=== PATIENT | female | born 1970 | race Caucasian/White ===

== ENCOUNTER 2017-10-08 06:50 | Observation (INO) | payer BC, OTHER ==
--- NOTE | 2017-10-08 07:06 | ERNOTE ---
<John Alfaro - Last Filed: 10/08/17 11:14> Chest Pain/Cardiac HPI Chief Complaint: Chest Pain Time Seen by Provider: 10/08/17 07:02 Immunizations: IMMUNIZATION HX Immunizations Up to Date Yes History of Influenza Vaccine Yes Hx Pneumococcal Vaccination No Allergies/Adverse Reactions: Allergies Penicillins Adverse Reaction (Intermediate, Verified 10/08/17 13:36) Hives Home Medications: HOME MEDICATIONS ALPRAZolam [Xanax] 0.5 mg PO BID PRN 10/08/17 [Last Taken Unknown] DULoxetine HCL [Cymbalta] 40 mg PO HS 10/08/17 [Last Taken Unknown] Multivit-Min/Folic Acid/Vit K1 [Multi For Her 50 Plus Softgel] 1 each PO DAILY 10/08/17 [Last Taken Unknown] Zolpidem Tartrate [Ambien] 5 mg PO HS PRN 10/08/17 [Last Taken Unknown] Acetaminophen [Tylenol] 650 mg PO Q6H PRN tablet 10/09/17 [Last Taken Unknown] Famotidine [Pepcid] 20 mg PO BID #60 tablet 10/09/17 [Last Taken Unknown] Nitroglycerin [Nitrostat] 0.4 mg SL Q5MIN PRN #50 tab 10/09/17 [Last Taken Unknown] ED Progress - Date and Time Seen: Date and Time: patient improved, discussed results with patient recommend admission 11:[address] blue to be admitted to observation - Vital Signs Vital Signs: Vital Signs 10/08/17 10/08/17 10/08/17 06:59 07:46 07:50 Temperature 36.7 C Pulse Rate 68 88 83 Respiratory 16 12 9 L Rate Blood Pressure 160/83 157/84 139/76 O2 Sat by Pulse 98 99 99 Oximetry 10/08/17 10/08/17 10/08/17 07:57 08:07 08:31 Temperature 37.0 C Pulse Rate 90 87 72 Respiratory 8 L 12 14 Rate Blood Pressure 140/74 127/77 131/83 O2 Sat by Pulse 98 99 100 Oximetry 10/08/17 10/08/17 10/08/17 08:52 09:41 10:22 Temperature 36.6 C Pulse Rate 66 64 69 Respiratory 12 15 14 Rate Blood Pressure 133/77 125/83 164/86 O2 Sat by Pulse 100 100 100 Oximetry 10/08/17 10/08/17 10/08/17 10:30 10:47 11:09 Temperature Pulse Rate 83 72 67 Respiratory 14 12 13 Rate Blood Pressure 145/83 125/81 134/77 O2 Sat by Pulse 100 100 98 Oximetry Plan - Plan Plan: to admit to observation Departure Clinical Impression: Chest pain Qualifiers: Chest pain type: unspecified Qualified Code(s): R07.9 - Chest pain, unspecified - Departure Disposition: [facility] Condition: Fair <RubyJerry - Last Filed: 10/13/17 06:19> Chest Pain/Cardiac HPI Date of Service: 10/08/17 Source: patient Exam Limitations: no limitations Narrative: 47-year-old female who for the last month has been experiencing intermittent periods of nausea, fatigue, chest pain, diaphoresis. Chest pain seems to increase with exertion and resolves with rest. Chest pain is described as someone was sitting on her chest. He has not had any heart disease in the past. Status post cardiac stress test 2007 which was unremarkable. Platelets of fevers, chills, or vomiting. Mother had 2 MIs in their 60s. The patient did smoke for 20+ years ago, but then discontinued 10 years ago. Her reasons for coming to the emergency department today is that she became very anxious. She does have a history of anxiety and has medication for but typically doesn't take it. Date (Duration): 10/08/17 Time (Timing): 07:31 Timing: getting worse Severity/Quality: moderate Location: substernal Chest Pain Radiation: no radiation Activities at Onset: activity Review of Systems - Review of Systems Constitutional: Present: no symptoms reported EYE: Present: no symptoms reported ENT: Present: no symptoms reported Respiratory: Present: no symptoms reported Cardiology: Present: no symptoms reported Gastrointestinal/Abdominal: Present: no symptoms reported Genitourinary: Present: no symptoms reported Musculoskeletal: Present: no symptoms reported Skin: Present: no symptoms reported Neurological: Present: no symptoms reported Endocrine: Present: no symptoms reported Hematologic/Lymphatic: Present: no symptoms reported Psych: Present: no symptoms reported Physical Exam - Physical Exam General Appearance: Present: mild distress Head Exam: Present: normal inspection Eye Exam: Normal inspection: bilateral, PERRL: bilateral, EOMI: bilateral Ears, Nose, Throat: Present: normal ENT inspection Neck: Present: normal inspection, supple Respiratory: Present: no respiratory distress Cardiovascular/Chest: Present: regular rate, rhythm Gastrointestinal/Abdominal: Present: nontender, nondistended Back Exam: Present: normal inspection Extremity Exam: Present: normal inspection Neurological Exam: Present: alert, oriented Skin Exam: Present: normal color ED Progress - Results and Orders Patient's Lab Results:: I have reviewed the patient's lab results. - Vital Signs Patient's Vital Signs:: I have reviewed the patient's vital signs. - EKG EKG: NSR EKG read: Interp. by me EKG Comments: rate 64, normal aixs - Progress/Reassessment Progress:: Improved Progress Note-Subjective: 10/08/17 08:15 The third nitroglycerin tablet the chest pain was reduced from a 6 to a 3. She now notes that the pain is aggravated by deep breathing. A d-dimer has been ordered to rule out a pulmonary embolus. He is signed out to Dr. Alfaro for follow-up on the laboratory results and final disposition of patient. Her symptoms are suspicious for angina. It has been suggested that she be admitted for observation with planned cardiac stress test to follow tomorrow. - Transfer of Care Physician Sign Out: Jerry Ruby Receiving Physician: John Alfaro Pending Results: Labs, Physician/consult arrival Expected Disposition: Admit
[2017-10-08] MEDS ORDERED: ASPIRIN 81 MG TAB.CHEW PO ONE (07:25)
[2017-10-08 07:41] LABS: Hemoglobin 10.2 gm/dL (12.5-16.0); Mean Cell Volume 76.9 fl (78-100); Mean Corpuscular Hemoglobin 24.5 pg (27-31); Mean Corpuscular Hgb Conc 31.9 g/dl (32-36); Mean Platelet Volume 10.6 fl (6.0-9.5); Neutrophil # 5.1 K/mm3 (1.3-6.0); Neutrophil % 60.9 % (42-75.0); Platelet Count 433 K/mm3 (150-450); Red Blood Count 4.16 M/mm3 (4.2-5.4); Red Cell Distribution Width 18.3 % (11.5-14.0); White Blood Count 8.3 K/mm3 (4.0-10.5)
[2017-10-08] MEDS: NITROGLYCERIN 0.4 MG/TAB BTL SL PRN ×3 (07:45→08:05)
[2017-10-08] MEDS ORDERED: ASPIRIN 81 MG TAB.CHEW ONE (07:49)
[2017-10-08 07:58] LABS: ALT 19 U/L (19-67); AST 19 U/L (0-48); Albumin * 3.6 gm/dl (3.4-5.0); Alkaline Phosphatase * 64 U/L (50-170); Anion Gap 11.3 mmol/L (6.8-13.8); BUN/Creatinine Ratio 11.6 (9.0-21.6); Bilirubin, Total 0.7 mg/dL (0.0-1.1); Blood Urea Nitrogen 8 mg/dL (3-23); Ca. Corrected For Albumin 8.5 mg/dL (8.4-10.2); Calcium * 8.5 mg/dL (7.9-10.9); Carbon Dioxide 28.1 mmol/L (24-32.6); Chloride 102 mmol/L (97-106); Glucose * 98 mg/dL (70-110); Potassium 3.4 mmol/L (3.4-4.6); Sodium 138 mmol/L (132-142); Total Protein 7.4 gm/dL (6.2-8.2); Troponin I Less than 0.017 ng/ml (0.00-0.10)
[2017-10-08 09:51] LABS: Urine Bilirubin Negative (NEGATIVE); Urine Blood Negative /ul (NEGATIVE); Urine Ketone 5 mg/dL (NEGATIVE); Urine Nitrite Negative (NEGATIVE); Urine Protein Negative (NEGATIVE); Urine Urobilinogen Normal (NORMAL)
[2017-10-08 10:05] LABS: Urine Appearance Clear; Urine Bacteria 1+; Urine Color Yellow; Urine RBC None Seen /hpf (0-5); Urine WBC None Seen /hpf (0-5)
[2017-10-08] MEDS ORDERED: NITROGLYCERIN 0.4 MG/TAB BTL SL ONE ×2 (10:24→10:29)
[2017-10-08] MEDS ORDERED: KETOROLAC TROMETHAMINE 30 MG/ML VIAL IV ONE (10:43)
[2017-10-08] MEDS ORDERED: KETOROLAC TROMETHAMINE 30 MG/ML VIAL ONE (10:44)
[2017-10-08 12:45] LABS: Amylase * 37 U/L (25-115); Lipase 147 U/L (73-393)
--- NOTE | 2017-10-08 12:50 | HP ---
Chief Complaint - Chief Complaint Date of Service: 10/08/17 Time of Service: 12:35 Chief Complaint: CP that has acutely worsened. History of Present Illness: Pt. is 47 yo WF, pt. of Dr. Aldrich, who has PMH significant for arthritis, fibromyalgia, gastric bypass, anxiety, has been having left sided CP x 1 month that worsened acutely last night. She does state that the pain would worsen with activity, be assoc. with COCHRAN, nausea, but no vomiting or diaphoresis and was relieved with rest. Her EKG showed no acute changes and trop I was negative x 2, but her sx were relieved with nitroglycerin. She denies heartburn or reflux sx, changes in her bowels or cough. She states the sx are different from her anxiety of the past and hasn't had any issues with it for some time. She does have some pain in the LUQ and Sternal border, which are worsened with movement or deep breath, but these are different from her CP sx. Her Mom had AMI at age 50 and needed stents placed. She has not history of hyperlipidemia, HTN or smoking history and no complaints of LE edema or recent travel and her d-dimer was negative for DVT. Her BP's were elevated when she came to the ER but have come down since being here. She currently rates her pain as 3/10. She is being put in the hospital overnight to observe and possibly get a stress test in the am if possible. - Patient's Past Medical History Patient History - Medical: Anemia, Fibromyalgia Patient History - Cardiac/Respiratory: No pertinent hx Patient History - Cancer: No Hx of Cancer Patient History - Surgical Procedures: Gastric Bypass, T & A Patient History - Other: None LMP (females 10-50): Sep 22 - Family History Mother Family History - Cardiac/Respiratory: Coronary Heart Disease, Myocardial Infarction - age 50 with stent placement - Social History Living Situations: home Psych History: Hx of Depression Smoking Status: Never smoker Alcohol Use: occasionally Drug Use: none - Immunizations Immunizations Up to Date: Yes Hx Pneumococcal Vaccination: No History of Influenza Vaccine: Yes Review Of Systems (GEN) - Review of Systems Generalized/Overall Review: Present: Weakness. Absent: Chills, Fever, Malaise EENTM: Present: No Symptoms Reported Respiratory: Present: Shortness of Breath. Absent: Cough, Wheezing Cardiac: Present: Chest Pain. Absent: Palpitations, Syncope Abdominal: Present: Nausea, Abdominal Pain. Absent: Vomiting, Hematemesis, Constipation, Diarrhea, Melena Genitourinary: Absent: No Symptoms Reported Musculoskeletal: Present: No Symptoms Reported Neurological: Present: No Symptoms Reported Skin: Present: No Symptoms Reported Endocrine: Present: No Symptoms Reported Allergies/Adverse Reactions: Allergies Allergy/AdvReac Type Severity Reaction Status Date / Time Penicillins AdvReac Verified 10/08/17 07:07 Home Medications: HOME MEDICATIONS ALPRAZolam [Xanax] 0.5 mg PO BID PRN 10/08/17 [Last Taken Unknown] DULoxetine HCL [Cymbalta] 40 mg PO HS 10/08/17 [Last Taken Unknown] Multivit-Min/Folic Acid/Vit K1 [Multi For Her 50 Plus Softgel] 1 each PO DAILY 10/08/17 [Last Taken Unknown] Zolpidem Tartrate [Ambien] 5 mg PO HS 10/08/17 [Last Taken Unknown] Exam - Exam Vital Signs: Vital Signs - Last Taken Temp 37.2 C 10/08/17 12:12 Pulse 98 10/08/17 12:12 Resp 19 10/08/17 12:12 BP 139/71 10/08/17 12:12 Pulse Ox 98 10/08/17 12:12 Constitutional: Present: Alert, Oriented x3, Cooperative, No distress ENT Exam: Present: hearing grossly normal Eye Exam: bilateral eye: normal inspection, PERRL, EOMI Neck: Present: supple Respiratory: Present: lungs clear, normal breath sounds, no respiratory distress , no accessory muscle use Cardiovascular/Chest: Present: regular rate, rhythm, no murmur Peripheral Pulses: dorsalis-pedis (R): 2+, dorsalis-pedis (L): 2+ Abdomen: Present: Normal bowel sounds, soft, nondistended, no rebound tenderness , no hepatospenomegaly, tender - LUQ and NITISH states does not reproduce the pain she is having. no tender AAA, guarding. Absent: rigidity, rebound tenderness, CVA tenderness Extremity: Present: normal range of motion, non-tender, no calf tenderness. Absent: lower extremity edema Skin Exam: Present: normal color Neurologic: Present: normal mood/affect - anxious, oriented x 3 Appearance: Present: appropriate appearance, appropriate insight, neat Eye contact: Present: cooperative, good eye contact, normal speech Thoughts: Present: normal thought pattern, no apparent hallucination Diagnostic Studies: Laboratory Results WBC 8.3 K/mm3 (4.0-10.5) 10/08/17 07:34 RBC 4.16 M/mm3 (4.2-5.4) L 10/08/17 07:34 Hgb 10.2 gm/dL (12.5-16.0) L 10/08/17 07:34 Hct 32.0 % (37.0-47.0) L 10/08/17 07:34 MCV 76.9 fl (78-100) L 10/08/17 07:34 MCH 24.5 pg (27-31) L 10/08/17 07:34 MCHC 31.9 g/dl (32-36) L 10/08/17 07:34 RDW 18.3 % (11.5-14.0) H 10/08/17 07:34 Plt Count 433 K/mm3 (150-450) 10/08/17 07:34 MPV 10.6 fl (6.0-9.5) H 10/08/17 07:34 Immature Gran % (Auto) 0.10 % (0.001-0.429) 10/08/17 07:34 Immature Gran # (Auto) 0.01 K/mm3 (0.000-0.0310) 10/08/17 07:34 Neutrophils % 60.9 % (42-75.0) 10/08/17 07:34 Lymphocytes % 26.4 % (20-51) 10/08/17 07:34 Monocytes % 9.0 % (0.0-9) 10/08/17 07:34 Eosinophils % 2.6 % (0.0-3.0) 10/08/17 07:34 Basophils % 1.0 % (0.0-1.0) 10/08/17 07:34 Nucleated RBC % 0.0 k/mm3 (0-1) 10/08/17 07:34 Neutrophils # 5.1 K/mm3 (1.3-6.0) 10/08/17 07:34 Lymphocytes # 2.2 k/mm3 (1.5-3.5) 10/08/17 07:34 Monocytes # 0.8 k/mm3 (0.0-1.0) 10/08/17 07:34 Eosinophils # 0.2 k/mm3 (0.0-0.7) 10/08/17 07:34 Absolute Basophils 0.1 k/mm3 (0.0-0.1) 10/08/17 07:34 D-Dimer 0.33 mg/L (0.19-0.49) 10/08/17 07:34 Sodium 138 mmol/L (132-142) 10/08/17 07:34 Plasma Sodium 138 mmol/L (130-142) 10/08/17 07:34 Potassium 3.4 mmol/L (3.4-4.6) D 10/08/17 07:34 Chloride 102 mmol/L (97-106) 10/08/17 07:34 Carbon Dioxide 28.1 mmol/L (24-32.6) 10/08/17 07:34 Anion Gap 11.3 mmol/L (6.8-13.8) 10/08/17 07:34 BUN 8 mg/dL (3-23) D 10/08/17 07:34 Creatinine 0.69 mg/dL (0.4-1.4) 10/08/17 07:34 Est GFR (Non-Af Amer) 97 mL/min (60-130) 10/08/17 07:34 BUN/Creatinine Ratio 11.6 (9.0-21.6) 10/08/17 07:34 Random Glucose 98 mg/dL (70-110) 10/08/17 07:34 Calcium 8.5 mg/dL (7.9-10.9) 10/08/17 07:34 Calcium Adj for Albumin 8.5 mg/dL (8.4-10.2) 10/08/17 07:34 Total Bilirubin 0.7 mg/dL (0.0-1.1) 10/08/17 07:34 AST 19 U/L (0-48) 10/08/17 07:34 ALT 19 U/L (19-67) 10/08/17 07:34 Alkaline Phosphatase 64 U/L (50-170) 10/08/17 07:34 Troponin I Less than 0.017 ng/ml (0.00-0.10) 10/08/17 09:18 Total Protein 7.4 gm/dL (6.2-8.2) 10/08/17 07:34 Albumin 3.6 gm/dl (3.4-5.0) 10/08/17 07:34 Urine Color Yellow 10/08/17 09:41 Urine Appearance Clear 10/08/17 09:41 Urine pH 7.0 pH (5.0-7.0) 10/08/17 09:41 Ur Specific [place] 1.020 SP.GR. (1.005-1.010) 10/08/17 09:41 Urine Protein Negative mg/dL (NEGATIVE) 10/08/17 09:41 Urine Glucose (UA) Negative mg/dL (NEGATIVE) 10/08/17 09:41 Urine Ketones 5 mg/dL (NEGATIVE) 10/08/17 09:41 Urine Blood Negative /ul (NEGATIVE) 10/08/17 09:41 Urine Nitrate Negative (NEGATIVE) 10/08/17 09:41 Urine Bilirubin Negative mg/dl (NEGATIVE) 10/08/17 09:41 Urine Urobilinogen Normal EU/dl (NORMAL) 10/08/17 09:41 Ur Leukocyte Esterase Negative /ul (NEGATIVE) 10/08/17 09:41 Urine RBC None seen /hpf (0-5) 10/08/17 09:41 Urine WBC None seen /hpf (0-5) 10/08/17 09:41 Ur Epithelial Cells Trace /hpf (0-5) 10/08/17 09:41 Urine Bacteria 1+ (NONE) H 10/08/17 09:41 Urine Culture Comments No culture indicated 10/08/17 09:41 Assessment/Plan - Assessment/Plan (1) LUQ abdominal pain Assessment: spleen or colon or gastric. consider UGI vs CT outpt if pain persists. consider GI cocktail to see if this improves pain. might be related to her current sx. Problem: Acute (2) Chest pain Assessment: doubt this is cardiac in nature given the negative trop I x 2 and no acute EKG changes, but still can't explain her sx yet. will check to be sure not a pancreatitis given NITISH, LUQ pain on exam. Given FH of AMI in Mom at age 50 and anginal type sx, pharmaceutical stress test would be prudent, but may need to be scheduled after d/c. Problem: Acute Qualifiers: Chest pain type: unspecified Qualified Code(s): R07.9 - Chest pain, unspecified
[2017-10-08] MEDS ORDERED: ALPRAZolam 0.5 MG TABLET PO PRN (20:59)
[2017-10-08] MEDS ORDERED: ZOLPIDEM TARTRATE 5 MG TABLET PO PRN (20:59)
[2017-10-08] MEDS ORDERED: DULoxetine HCL 20 MG CAPSULE.SA PO SCH (21:00)
[2017-10-08] MEDS: ACETAMINOPHEN 325 MG TABLET PO PRN (21:23)
[2017-10-09] MEDS: ACETAMINOPHEN 325 MG TABLET PO PRN (03:28)
--- NOTE | 2017-10-09 07:23 | DS ---
(1) LUQ abdominal pain Problem: Acute (2) Chest pain Problem: Acute Qualifiers: Chest pain type: unspecified Qualified Code(s): R07.9 - Chest pain, unspecified Description of Stay: Pt. was admitted for CP that was relieved with nitro and rest, worsened with activity. Her trop I was negative x 3 and no acute EKG changes. Still with her mom having CAD and needing stints at age 50, believe it would be good to get outpt. nuclear stress test on her. In the meantime, activity as tolerated and will send her home on nitrostat prn. LUG/NITISH pain: pain was improved, so still not sure if this pain or even her CP was due to GI or not. She does have some chronic anemia issues and is scheduled to go to [facility] for EGD and colonoscopy. In the meantime will put her on the pepcid pending those exams. No other changes while she was here. Procedures Performed: none Discharge Disposition: Home self care Disposition: Home self-care Condition: Fair Discharge Activity: Activity as tolerated Discharge Diet: General/regular food Referrals: Frida Whelan MD [Primary Care Provider] - One Week Prescriptions (Any new or edited meds): Famotidine [Pepcid] 20 mg PO BID #60 tablet Nitroglycerin [Nitrostat] 0.4 mg SL Q5MIN PRN #50 tab PRN Reason: Chest Pain Complete Home Medications List: Complete Home Medication List: ALPRAZolam [Xanax] 0.5 mg PO BID PRN 10/08/17 DULoxetine HCL [Cymbalta] 40 mg PO HS 10/08/17 Multivit-Min/Folic Acid/Vit K1 [Multi For Her 50 Plus Softgel] 1 each PO DAILY 10/08/17 Zolpidem Tartrate [Ambien] 5 mg PO HS PRN 10/08/17 Acetaminophen [Tylenol] 650 mg PO Q6H PRN tablet 10/09/17 Famotidine [Pepcid] 20 mg PO BID #60 tablet 10/09/17 Nitroglycerin [Nitrostat] 0.4 mg SL Q5MIN PRN #50 tab 10/09/17
[2017-10-09 07:29] VITALS: BP 142/69
[2017-10-09] MEDS ORDERED: MULTIVITAMIN/IRON/FOLIC ACID 1 TAB TABLET PO SCH (09:00)
== END 2017-10-09 09:00 | disposition home or self-care (01) ==
LOC: ER 06:50 → MS 11:13
PROVIDERS: ADMIT Family Medicine; ATTEND Family Medicine
DX: R10.12 Left upper quadrant pain (principal); R07.9 Chest pain, unspecified; D64.9 Anemia, unspecified; M79.7 Fibromyalgia; Z68.26 Body mass index [BMI] 26.0-26.9, adult
CPT/HCPCS: 36415; 71046; 80053; 81001; 82150; 83690; 84484; 85025; 85379; 93005; 96374; 99283; G0378